=== PATIENT | female | born 1935 | race Caucasian/White ===

== ENCOUNTER → 2016-09-28 | Outpatient (CLI) | payer MEDICARE ==
[~2016-09-28] MED LIST: ALBU17AE23 IH; ASP81TEC PO; ASPI-999 PO; CARV12.53 PO; CETI10CA PO; CHOL2000 PO; CPR500T PO; FA/M1TAB29 PO; FLT22013 INH; GBPN300C PO; GLUC-116 PO; HCT25T PO; IBUP-15 PO; IPRA0.2S51 IH; IPRA30SP INH; LEVO750T39 PO; LOSA50TA6 PO; MAGN400T6 PO; METO-272 PO; METO50TA2 PO; MULT-349 PO; MULT1CAP27 PO; OMEP20TA2 PO; SERT25TA PO; SERT50TA9 PO; VLS80C PO
--- OUTSIDE RECORDS SUMMARY | 2016-09-28 10:23 | XMS REPORT | Continuity of Care Document ---
Author Author [facility] Organization [facility] Address Unknown Phone Unavailable Allergies Active Description Code Type Severity Reaction Onset Reported/Identified Relationship to Patient Clinical Status Yes loratadine [id number] Drug Allergy Unknown N/A 10/15/2014 Yes Penicillins [id number] Drug Allergy Unknown N/A 10/15/2014 Yes Sulfa (Sulfonamide Antibiotics) [id number] Drug Allergy Unknown N/A 10/15/2014 Medications Problems Date Dx Coded Attending Type Code Diagnosis Diagnosed By 06/04/2011 Ot 275.2 06/04/2011 Ot 356.9 06/04/2011 Ot 401.9 06/04/2011 Ot 426.11 06/04/2011 Ot 427.89 06/04/2011 Ot 458.9 06/04/2011 Ot 493.90 06/04/2011 Ot 530.81 06/04/2011 Ot 722.4 06/04/2011 Ot 780.2 06/04/2011 Ot 920 06/04/2011 Ot E000.8 06/04/2011 Ot E849.6 06/04/2011 Ot E888.1 06/04/2011 Ot V12.59 06/04/2011 Ot V58.66 06/04/2011 Ot V58.69 05/30/2013 FLAKITO JOHNSON, HILDA Gee Ot 599.0 05/30/2013 HILDA FRAGA MD Ot 788.41 07/23/2014 Ot V76.12 07/23/2014 Ot V76.12 07/23/2014 Ot V76.12 07/23/2014 Ot 793.80 07/23/2014 NALDO LUNA DO Ot 793.80 07/23/2014 NALDO LUNA DO Ot V67.9 07/23/2014 NALDO LUNA DO Ot 959.3 07/23/2014 NALDO LUNA DO Ot E000.8 07/23/2014 NALDO LUNA DO Ot E928.9 07/23/2014 LUNA DONALDO Ot V76.12 08/24/2014 LUNA DO, NALDO Corrigan Ot 786.50 08/24/2014 LUNA DO NALDO Corrigan Ot V76.12 11/12/2014 Ot 789.03 08/09/2015 Ot V76.12 08/09/2015 Ot V76.12 08/09/2015 Ot 793.80 08/09/2015 LUNA DO NALDO Corrigan Ot 793.80 08/09/2015 LUNA DO NALDO Corrigan Ot V67.9 08/09/2015 LUNA DO NALDO Corrigan Ot 959.3 08/09/2015 LUNA DO NALDO Corrigan Ot E000.8 08/09/2015 LUNA DO NALDO Corrigan Ot E928.9 08/09/2015 LUNA DO NALDO Corrigan Ot V76.12 08/09/2015 LUNA DO NALDO Corrigan Ot 786.50 08/09/2015 LUNA DO NALDO Corrigan Ot V76.12 08/09/2015 Ot 789.03 08/31/2015 LUNA DO NALDO Corrigan Ot Z12.31 10/14/2015 Ot V76.12 10/14/2015 Ot V76.12 10/14/2015 Ot 793.80 10/14/2015 LUNA DO NALDO Corirgan Ot 793.80 10/14/2015 LUNA DO NALDO Corrigan Ot V67.9 10/14/2015 LUNA DO NALDO Corrigan Ot 959.3 10/14/2015 LUNA DO NALDO Corrigan Ot E000.8 10/14/2015 LUNA DO NALDO Corrigan Ot E928.9 10/14/2015 LUNA DO NALDO Corrigan Ot V76.12 10/14/2015 LUNA DO NALDO Corrigan Ot 786.50 10/14/2015 LUNA DO NALDO Corrigan Ot V76.12 10/14/2015 Ot 789.03 10/14/2015 LUNA DO NALDO Corrigan Ot Z12.31 11/03/2015 LUNA DO NALDO Corrigan Ot E55.9 11/03/2015 LUNA DO NALDO Corrigan Ot M85.80 11/03/2015 LUNA DO NALDO Corrigan Ot R29.890 11/03/2015 NALDO LUNA DO Ot Z13.820 03/13/2016 KIANA JOHNSON, MIRIAN Garcia Ot A41.9 SEPSIS, UNSPECIFIED ORGANISM 03/13/2016 MIRIAN BRUNO MD Ot F32.9 MAJOR DEPRESSIVE DISORDER, SINGLE EPISOD 03/13/2016 MIRIAN BRUNO MD Ot I10 ESSENTIAL (PRIMARY) HYPERTENSION 03/13/2016 MIRIAN BRUNO MD Ot J18.9 PNEUMONIA, UNSPECIFIED ORGANISM 03/13/2016 MIRIAN BURNO MD Ot J44.9 CHRONIC OBSTRUCTIVE PULMONARY DISEASE, U 03/13/2016 MIRIAN BRUNO MD Ot Z86.79 PERSONAL HISTORY OF OTHER DISEASES OF TH 03/14/2016 MIRIAN BRUNO MD Ot F32.9 MAJOR DEPRESSIVE DISORDER, SINGLE EPISOD 03/14/2016 MIRIAN BRUNO MD Ot I10 ESSENTIAL (PRIMARY) HYPERTENSION 03/14/2016 MIRIAN BRUNO MD Ot J18.9 PNEUMONIA, UNSPECIFIED ORGANISM 03/14/2016 MIRIAN BRUNO MD Ot J44.1 CHRONIC OBSTRUCTIVE PULMONARY DISEASE W 03/14/2016 MIRIAN BRUNO MD Ot M19.90 UNSPECIFIED OSTEOARTHRITIS, UNSPECIFIED 03/14/2016 MIRIAN BRUNO MD Ot Z86.79 PERSONAL HISTORY OF OTHER DISEASES OF 04/04/2016 NALDO LUNA DO Ot J18.9 PNEUMONIA, UNSPECIFIED ORGANISM 04/04/2016 NALDO LUNA DO Ot J18.9 PNEUMONIA, UNSPECIFIED ORGANISM 04/21/2016 NALDO LUNA DO Ot J18.9 PNEUMONIA, UNSPECIFIED ORGANISM 05/09/2016 NALDO LUNA DO, Ot J18.9 PNEUMONIA, UNSPECIFIED ORGANISM Procedures Results Test Result Range Bacterial blood culture - 03/11/16 10:57 Bacterial blood culture NG NRG Bacterial blood culture - 03/11/16 11:17 Bacterial blood culture NG NRG Encounters ACCT No. Visit Date/Time Discharge Status Pt. Type Provider Facility Loc./Unit Complaint [id number] 03/12/2016 12:00:00 2015 11:30:00 DIS Inpatient MIRIAN BRUNO MD [facility] 4TH RML LLL PNEUMONIA [id number] 07/23/2014 12:55:00 2013 23:59:59 CLS Outpatient NALDO LUNA DO [facility] RAD [id number] 09/04/2013 15:44:00 2013 23:59:59 CLS Outpatient [id number] 08/07/2013 11:09:00 2012 23:59:59 CLS Outpatient NALDO LUNA DO [facility] RAD [id number] 06/30/2013 13:59:00 2012 23:59:59 CLS Outpatient [id number] 05/30/2013 06:48:00 2012 09:00:00 DIS Emergency FLAKITO JOHNSON, HILDA Gee [facility] ER [id number] 02/24/2013 13:41:00 2012 23:59:59 CLS Outpatient [id number] 01/20/2013 13:38:00 2012 23:59:59 CLS Outpatient NALDO LUNA DO [facility] RAD [id number] 12/31/2012 10:44:00 2012 23:59:59 CLS Outpatient NALDO LUNA DO [facility] RAD [id number] 09/28/2016 10:45:00 PEN Preadmit NALDO LUNA DO [facility] RAD SCREEN [id number] 03/31/2016 08:53:00 ACT Outpatient NALDO LUNA DO [facility] RAD J18.9 FOLLOW UP [id number] 10/14/2015 09:06:00 ACT Outpatient NALDO LUNA DO [facility] RAD [id number] 08/09/2015 15:11:00 ACT Outpatient NALDO LUNA DO [facility] RAD [id number] 10/12/2014 11:30:00 Document Registration [id number] 07/23/2014 12:56:00 Document Registration [id number] 08/27/2012 12:53:00 Document Registration [id number] 07/29/2012 10:01:00 Document Registration [id number] 06/22/2011 10:56:00 Document Registration [id number] 06/02/2011 14:40:00 Document Registration [id number] 05/27/2009 14:00:00 Document Registration
--- NOTE | 2016-09-28 19:02 | Diagnostic Imaging Report ---
Bilateral screening mammogram The current study was also evaluated with a Computer Aided Detection (CAD) system. Indication: Screening. No current complaints stated on the questionnaire. COMPARISON: 08/09/15. FINDINGS: The breasts are composed of scattered fibroglandular densities. There are occasional benign-appearing calcifications. Allowing for technique and positional differences, no suspicious change is seen. IMPRESSION: No significant change. ACR BI-RADS Category 2: Benign findings. Result letter will be mailed to the patient. Note: At least 10% of breast cancer is not imaged by mammography. Dictated by: Dictated on workstation # [id number]
== END ==
LOC: RAD 10:20
PROVIDERS: ATTEND Internal Medicine
DX: Z12.31 Encounter for screening mammogram for malignant neoplasm of breast (principal)
CPT/HCPCS: 77067

== ENCOUNTER → 2016-10-13 | Outpatient (CLI) | payer MEDICARE ==
--- OUTSIDE RECORDS SUMMARY | 2016-10-13 10:07 | XMS REPORT | Continuity of Care Document ---
Author Author [facility] Organization [facility] Address Unknown Phone Unavailable Allergies Active Description Code Type Severity Reaction Onset Reported/Identified Relationship to Patient Clinical Status Yes loratadine [id number] Drug Allergy Unknown N/A 10/15/2014 Yes Penicillins [id number] Drug Allergy Unknown N/A 10/15/2014 Yes Sulfa (Sulfonamide Antibiotics) [id number] Drug Allergy Unknown N/A 10/15/2014 Medications Problems Date Dx Coded Attending Type Code Diagnosis Diagnosed By 06/04/2011 Ot 275.2 DIS MAGNESIUM METABOLISM 06/04/2011 Ot 356.9 IDIO PERIPH NEURPTHY NOS 06/04/2011 Ot 401.9 HYPERTENSION NOS 06/04/2011 Ot 426.11 ATRIOVENT BLOCK-1ST DEGR 06/04/2011 Ot 427.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 NEC 06/04/2011 Ot 458.9 HYPOTENSION NOS 06/04/2011 Ot 493.90 ASTHMA, UNSPECIFIED 06/04/2011 Ot 530.81 ESOPHAGEAL REFLUX 06/04/2011 Ot 722.4 CERVICAL DISC DEGEN 06/04/2011 Ot 780.2 SYNCOPE AND COLLAPSE 06/04/2011 Ot 920 CONTUSION FACE/SCALP/NCK 06/04/2011 Ot E000.8 OTHER EXTERNAL CAUSE STATUS 06/04/2011 Ot E849.6 ACCIDENT IN PUBLIC BLDG 06/04/2011 Ot E888.1 FALL STRIKING OBJECT NEC 06/04/2011 Ot V12.59 HX-CIRCULATORY SYST DIS,NEC 06/04/2011 Ot V58.66 LONG-TERM (CURRENT) USE OF ASPIRIN 06/04/2011 Ot V58.69 OTH MED,LT,CURRENT USE 05/30/2013 FLAKITO JOHNSON, HILDA Gee Ot 599.0 URIN TRACT INFECTION NOS 05/30/2013 FLAKITO JOHNSON, HILDA Gee Ot 788.41 URINARY FREQUENCY 07/23/2014 Ot V76.12 07/23/2014 Ot V76.12 07/23/2014 Ot V76.12 07/23/2014 Ot 793.80 07/23/2014 LUNA DO NALDO Corrigan Ot 793.80 07/23/2014 LUNA DO NALDO Corrigan Ot V67.9 07/23/2014 LUNA DO NALDO Corrigan Ot 959.3 07/23/2014 LUNA DO NALDO Corrigan Ot E000.8 07/23/2014 LUNA DO NALDO Corrigan Ot E928.9 07/23/2014 LUNA DO NALDO Corrigan Ot V76.12 08/24/2014 LUNA DO NALDO Corrigan Ot 786.50 08/24/2014 LUNA DO NALDO Corrigan Ot V76.12 11/12/2014 Ot 789.03 08/09/2015 Ot V76.12 08/09/2015 Ot V76.12 08/09/2015 Ot 793.80 08/09/2015 LUNA DO NALDO oCrrigan Ot 793.80 08/09/2015 LUNA DO NALDO Corrigan Ot V67.9 08/09/2015 LUNA DO NALDO Corrigan Ot 959.3 08/09/2015 LUNA DO NALDO Corrigna Ot E000.8 08/09/2015 LUNA DO NALDO Corrigan Ot E928.9 08/09/2015 LUNA DO NALDO Corrigan Ot V76.12 08/09/2015 LUNA DO NALDO Corrigan Ot 786.50 08/09/2015 LUNA DO NALDO Corrigan Ot V76.12 08/09/2015 Ot 789.03 08/31/2015 LUNA DO NALDO Corrigan Ot Z12.31 10/14/2015 Ot V76.12 10/14/2015 Ot V76.12 10/14/2015 Ot 793.80 10/14/2015 LUNA DO NALDO Corrigan Ot 793.80 10/14/2015 LUNA DO NALDO Corrigan Ot V67.9 10/14/2015 LUNA DO NALDO Corrigan Ot 959.3 10/14/2015 LUNA DO NALDO Corrigan Ot E000.8 10/14/2015 LUNA DO NALDO Corrigan Ot E928.9 10/14/2015 LUNA DO NALDO Corrigan Ot V76.12 10/14/2015 LUNA DO NALDO Corrigan Ot 786.50 10/14/2015 LUNA DONALDO Ot V76.12 10/14/2015 Ot 789.03 10/14/2015 LUNANALDO RENTERIA DO Ot Z12.31 11/03/2015 LUNA DONALDO Ot E55.9 11/03/2015 LUNA NALDO GREEN Ot M85.80 11/03/2015 LUNA NALDO GREEN Ot R29.890 11/03/2015 LUNA NALDO GREEN Ot Z13.820 03/13/2016 MIRIAN BRUNO MD Ot A41.9 SEPSIS, UNSPECIFIED ORGANISM 03/13/2016 MIRIAN BRUNO MD Ot F32.9 MAJOR DEPRESSIVE DISORDER, SINGLE EPISOD 03/13/2016 MIRIAN BRUNO MD Ot I10 ESSENTIAL (PRIMARY) HYPERTENSION 03/13/2016 MIRIAN BRUNO MD, Ot J18.9 PNEUMONIA, UNSPECIFIED ORGANISM 03/13/2016 MIRIAN BRUNO MD Ot J44.9 CHRONIC OBSTRUCTIVE PULMONARY DISEASE, U 03/13/2016 MIRIAN BRUNO MD Ot Z86.79 PERSONAL HISTORY OF OTHER DISEASES OF 03/14/2016 MIRIAN BRUNO MD Ot F32.9 MAJOR [...] DO Ot J18.9 PNEUMONIA, UNSPECIFIED ORGANISM 05/09/2016 LUNA NALDO GREEN Ot J18.9 PNEUMONIA, UNSPECIFIED ORGANISM 09/28/2016 Ot V76.12 OTH SCREEN MAMMO-MALIGN NEOPLASM OF [place] 09/28/2016 Ot V76.12 OTH SCREEN MAMMO-MALIGN NEOPLASM OF [place] 09/28/2016 Ot 793.80 UNSPEC ABNORMAL MAMMOGRAM 09/28/2016 NALDO LUNA DO Ot 793.80 UNSPEC ABNORMAL MAMMOGRAM 09/28/2016 NALDO LUNA DO Ot V67.9 FOLLOW-UP EXAM NOS 09/28/2016 NALDO LUNA DO Ot 959.3 ELB/FOREARM/WRST INJ NOS 09/28/2016 NALDO LUNA DO Ot E000.8 OTHER EXTERNAL CAUSE STATUS 09/28/2016 NALDO LUNA DO Ot E928.9 ACCIDENT NOS 09/28/2016 NALDO LUNA DO, Ot V76.12 OTH SCREEN MAMMO-MALIGN NEOPLASM OF [place] 09/28/2016 NALDO LUNA DO Ot 786.50 CHEST PAIN NOS 09/28/2016 NALDO LUNA DO, Ot V76.12 OTH SCREEN MAMMO-MALIGN NEOPLASM OF [place] 09/28/2016 Ot 789.03 ABDOMINAL PAIN, RIGHT LOWER QUADRANT 09/28/2016 NALDO LUNA DO, Ot Z12.31 ENCNTR SCREEN MAMMOGRAM FOR MALIGNANT NE 09/28/2016 NALDO LUNA DO Ot E55.9 VITAMIN D DEFICIENCY, UNSPECIFIED 09/28/2016 NALDO LUNA DO Ot M85.80 OT DISRD OF BONE DENSITY AND STRUCTURE, 09/28/2016 NALDO LUNA DO Ot R29.890 LOSS OF HEIGHT 09/28/2016 NALDO LUNA DO Ot Z13.820 ENCOUNTER FOR SCREENING FOR OSTEOPOROSIS 09/28/2016 NALDO LUNA DO, Ot J18.9 PNEUMONIA, UNSPECIFIED ORGANISM 09/29/2016 NALDO LUNA DO, Ot Z12.31 ENCNTR SCREEN MAMMOGRAM FOR MALIGNANT NE Procedures Results Test Result Range Bacterial blood culture - 03/11/16 10:57 Bacterial blood culture NG NRG Bacterial blood culture - 03/11/16 11:17 Bacterial blood culture NG NRG Encounters ACCT No. Visit Date/Time Discharge Status Pt. Type Provider Facility Loc./Unit Complaint [id number] 03/12/2016 12:00:00 2015 11:30:00 DIS Inpatient KIANA JOHNSON, MIRIAN Garcia [facility] 4TH RML LLL PNEUMONIA [id number] 07/23/2014 12:55:00 2013 23:59:59 CLS Outpatient NALDO LUNA DO [facility] RAD SCREENING,CP [id number] 09/04/2013 15:44:00 2013 23:59:59 CLS Outpatient [id number] 08/07/2013 11:09:00 2012 23:59:59 CLS Outpatient NALDO LUNA DO [facility] RAD SCREENING [id number] 06/30/2013 13:59:00 2012 23:59:59 CLS Outpatient [id number] 05/30/2013 06:48:00 2012 09:00:00 DIS Emergency FLAKITO JOHNSON, HILDA Gee [facility] ER URINATING EVERY 15 MINUTES [id number] 02/24/2013 13:41:00 2012 23:59:59 CLS Outpatient [id number] 01/20/2013 13:38:00 2012 23:59:59 CLS Outpatient NALDO LUNA DO [facility] RAD TRAUMA [id number] 12/31/2012 10:44:00 2012 23:59:59 CLS Outpatient NALDO LUNA DO [facility] RAD THREE MONTH FOLLOW-UP,ABN MAMMOGRAM [id number] 09/28/2016 10:20:00 ACT Outpatient NALDO LUNA DO [facility] RAD SCREEN [id number] 03/31/2016 08:53:00 ACT Outpatient NALDO LUNA DO [facility] RAD J18.9 FOLLOW UP [id number] 10/14/2015 09:06:00 ACT Outpatient NALDO LUNA DO [facility] RAD VITAMIND D DEF [id number] 08/09/2015 15:11:00 ACT Outpatient NALDO LUNA DO [facility] RAD SCREENING [id number] 10/12/2014 11:30:00 Document Registration [id number] 07/23/2014 12:56:00 Document Registration [id number] 08/27/2012 12:53:00 Document Registration [id number] 07/29/2012 10:01:00 Document Registration [id number] 06/22/2011 10:56:00 Document Registration [id number] 06/02/2011 14:40:00 Document Registration [id number] 05/27/2009 14:00:00 Document Registration
--- NOTE | 2016-10-13 14:49 | Diagnostic Imaging Report ---
Cervical spine. INDICATION: Neck pain. FINDINGS: AP, lateral and odontoid views were obtained. The CT cervical spine exam of 06/02/2011 noted degenerative disc and bony disease at C5-C6 and C6-C7. Those findings are again evident and do not appear to have changed significantly. There may be slightly greater narrowing of the disc space at C5-C6 than on the prior exam. The other intervertebral disc spaces are essentially no different. There is no fracture or acute bony abnormality evident. There is no sign of retropharyngeal edema. The lung apices are clear. IMPRESSION: 1. There is no evidence for an acute bony abnormality. 2. The degenerative disc and bony disease at C5-C6 and C6-C7 seen on the prior study has not changed significantly. There may be slightly greater narrowing of the disc space at C5-C6, however. 3. If there is clinical concern regarding spinal stenosis or nerve root encroachment, then MRI will be recommended for further evaluation. Dictated by: Dictated on workstation # [id number]
== END ==
LOC: RAD 10:03
PROVIDERS: ATTEND Internal Medicine
DX: M54.2 Cervicalgia (principal); M50.322 Other cervical disc degeneration at C5-C6 level
CPT/HCPCS: 72040

== ENCOUNTER → 2017-05-31 | Outpatient (CLI) | payer MEDICARE ==
[~2017-05-31] MED LIST changes: +IOHEXOL 350 MG/ML 100 ML (OMNIPAQUE 350) VIAL IV ONE; +NS 100 ML (IVPB) BAG IV ONE
[2017-05-31 10:08] LABS: BLOOD UREA NITROGEN 16 MG/DL (7-18); BUN/CREATININE RATIO 21; CREATININE SERUM 0.77 MG/DL (0.60-1.30); GFR ESTIMATED > 60
--- NOTE | 2017-05-31 18:49 | Diagnostic Imaging Report ---
PROCEDURE: CT chest with contrast only. TECHNIQUE: Multiple contiguous axial images were obtained through the chest after administration of intravenous contrast. INDICATION: Hilar nodule. Cough. Shortness of breath. 75 mL of Omnipaque 350 is administered as intravenously. FINDINGS: In the left upper lobe, there is an area of consolidation seen with air bronchograms noted that has an elongated appearance particularly, prominent on the coronal images. This is involving a subsegmental area within the anterior segment of the left upper lobe. This could be related to atelectasis or scarring based on its morphology. There is also a nonspecific patchy ground-glass opacity seen in the anterolateral aspect of the right lower lobe near the lung base involving an area measuring around 2.3 x 1.1 cm. This could relate to a scar or focal atelectasis as well. There is a calcified granuloma in the right middle lobe. There is also a calcified granuloma in the infracarinal region. No significant lymphadenopathy in the mediastinum, noel, or in the axillae is noted. The heart size is normal. No pericardial or pleural effusion. Nonspecific thyroid nodules, less than a centimeter in size, in the right thyroid lobe are seen. There is a mild pectus excavatum deformity, more prominent in the lower chest. Mild degenerative changes in the thoracic spine seen. Sections in the upper abdomen demonstrate cholecystectomy clips. IMPRESSION: 1. Nonspecific elongated area of consolidation in the anterior segment of the left upper lobe. Based on its morphology, atelectasis or scarring is favored. Underlying neoplasm is not entirely excluded. A PET/CT evaluation or followup study in 2-3 months is recommended. 2. Nonspecific ground-glass opacity in the lateral aspect of the right lower lobe near the lung base could relate to scarring or focal atelectasis as well. Dictated by: Dictated on workstation # [id number]
== END ==
LOC: RAD 09:21
PROVIDERS: ATTEND Internal Medicine
DX: R91.8 Other nonspecific abnormal finding of lung field (principal)
CPT/HCPCS: 36415; 71260; 82565; 84520

== ENCOUNTER → 2017-06-12 | Outpatient (CLI) | payer MEDICARE ==
[~2017-06-12] MED LIST changes: -IOHEXOL 350 MG/ML 100 ML (OMNIPAQUE 350) VIAL IV ONE; -NS 100 ML (IVPB) BAG IV ONE
--- NOTE | 2017-06-13 10:51 | Diagnostic Imaging Report ---
EXAMINATION: PET-CT TECHNIQUE: Serum glucose level at the time of the study is: 97 mg/dL. 12.1 mCi of FDG was administered intravenously followed by obtaining PET images with corresponding noncontrast CT scan images. The CT scan was performed for anatomic correlation and attenuation correction and was not performed according to the diagnostic protocol of the areas covered. The scan was performed from the head to mid thighs. INDICATION: Pulmonary nodule. COMPARISON: Correlation with CT scan of 05/31/2017. FINDINGS: There is symmetric FDG uptake in the brain. There is no significantly hypermetabolic mass seen in the neck. There is minimal FDG uptake in the left upper lobe anterior segment focal consolidation with SUV of 2.5. This is in favor of a benign process such as pneumonitis rather than a neoplasm. No hypermetabolic enlarged lymph nodes in the noel or mediastinum. The abdomen and pelvis demonstrate physiologic excretion of the tracer in the urinary tract. No suspicious hypermetabolic mass is seen. IMPRESSION: There is minimal FDG uptake in the left upper lobe nodular consolidation in favor of benign process such as inflammatory or infectious pneumonitis. Followup CT chest in 2-3 months is recommended to ensure stability. Dictated by: Dictated on workstation # [id number]
== END ==
LOC: RAD 10:34
PROVIDERS: ATTEND Internal Medicine
DX: R91.8 Other nonspecific abnormal finding of lung field (principal)

== ENCOUNTER 2017-07-22 11:31 | Emergency (ER) | payer MEDICARE ==
[~2017-07-22] VITALS: Ht 154.9 cm; Wt 73.2 kg
[2017-07-22] MEDS ORDERED: TRAM-42 PO (12:32)
--- NOTE | 2017-07-22 12:33 | ED Lower Extremity ---
General Chief Complaint: Lower Extremity Stated Complaint: L KNEE INJ Nursing Triage Note: PT STATES HER LT KNEE HAS BEEN HURTING, 1 ALEVE THIS A.M. PT WENT TO GET UP AT [employer] AND WAS UNABLE TO BEAR WEIGHT ON IT. STATES DANCING ON 07/07 AND IT HAS BEEN HURTING SINCE OFF AND ON. Nursing Sepsis Screen: No Definite Risk Source: patient Exam Limitations: no limitations History of Present Illness Time seen by provider: 12:29 Initial Comments To ER with left knee pain. She was at [employer] today standing up out of her PO2 to go get communion. Her knee gave out causing her to almost fall but she was able to catch herself. She has pain in the left knee. She did receive a steroid injection the left knee from her primary care provider Dr. Rucker recently for some ongoing knee pain. Apically she takes Advil which does help with the chronic knee pain. She's been unable to bear weight since the fall due to the pain. Onset: just prior to arrival Severity: moderate Pain/Injury Location: left knee Method of Injury: other (knee gave out) Modifying Factors: Improves With Movement Allergies and Home Medications Allergies Coded Allergies: Penicillins (Verified Allergy, Unknown, 10/15/14) Sulfa (Sulfonamide Antibiotics) (Verified Allergy, Unknown, 10/15/14) loratadine (Verified Allergy, Unknown, 10/15/14) Home Medications Aspirin 81 Mg Tab.chew, 81 MG PO HS, (Reported) Cholecalciferol 2,000 Unit Capsule, 2,000 UNIT PO DAILY, (Reported) Gabapentin 300 Mg Cap, 300 MG PO HS, (Reported) Gluc/Juan-MSM#2/C/D3/Eduardo/Born 1 Each Tablet, 1 TAB PO DAILY, (Reported) Ibuprofen 200 Mg Tablet, 400 MG PO Q4H PRN for PAIN, (Reported) TAKES 2 (200MG) TABLETS Levofloxacin 750 Mg Tablet, 750 MG PO Q48H@11, #4 Prescribed by: REBECCA OBRIEN on 03/14/16 1019 Losartan Potassium 50 Mg Tablet, 50 MG PO DAILY, (Reported) Metoprolol Tartrate 50 Mg Tablet, 50 MG PO HS, (Reported) Metoprolol Tartrate 50 Mg Tablet, 25 MG PO DAILY, (Reported) TAKES 1/2 (50MG) TABLET Multivit-Min/FA/Lycopene/Lut 1 Each Tablet, 1 TAB PO DAILY, (Reported) Sertraline HCl 50 Mg Tablet, 25 MG PO HS, (Reported) TAKES 1/2 (50MG) TABLET Constitutional: see HPI EENTM: see HPI Respiratory: no symptoms reported Cardiovascular: no symptoms reported Genitourinary: no symptoms reported Musculoskeletal: see HPI Skin: no symptoms reported Psychiatric/Neurological: No Symptoms Reported Past Urzrodj-Kcwwxb-Mjcgpa Hx Patient Social History Recent Foreign Travel: No Contact w/Someone Who Travel: No Recent Infectious Disease Expo: No Recent Hopitalizations: No Immunizations Up To Date Date of Pneumonia Vaccine: Aug 20, 2012 Seasonal Allergies Seasonal Allergies: No Respiratory Respiratory Disorders: Pneumonia Currently Using CPAP: No Currently Using BIPAP: No Cardiovascular Cardiac Disorders: Hypertension Reproductive System Hx Reproductive Disorders: No Sexually Transmitted Disease: No HIV/AIDS: No Female Reproductive Disorders: Denies [employer] History: Hysterectomy Musculoskeletal Musculoskeletal Disorders: Arthritis HEENT HEENT Disorders: Cataract Psychosocial Behavioral Health Disorders: Depression Family Medical History Family Medial History: Arthritis G8 SISTER Cardiovascular disease 19 MOTHER FH: breast cancer in first degree relative G8 SISTER FH: cancer 19 FATHER Myocardial infarction 19 MOTHER Physical Exam Vital Signs Capillary Refill : Less Than 3 Seconds General Appearance: WD/WN, no apparent distress HEENT: PERRL/EOMI, normal ENT inspection Neck: non-tender, full range of motion Respiratory: no respiratory distress, no accessory muscle use Hips: bilateral hip non-tender, bilateral hip normal inspection, bilateral hip normal range of motion Legs: bilateral leg non-tender, bilateral leg normal inspection, bilateral leg normal range of motion Knees: left knee pain, left knee soft tissue tenderness, left knee other ( there is no swelling, ecchymosis or erythema.) Ankles: bilateral ankle non-tender, bilateral ankle normal inspection, bilateral ankle normal range of motion Feet: bilateral foot non-tender, bilateral foot normal inspection, bilateral foot normal range of motion Neurologic/Psychiatric: alert, normal mood/affect, oriented x 3 Skin: normal color, warm/dry Progress/Results/Core Measures Results/Orders My Orders Orders - LACY MAST APRN Knee, Left, 3 Views (07/22/17 12:28) Tramadol Tablet (Ultram Tablet) (07/22/17 12:30) Departure Impression Impression: Primary Impression: Internal derangement of left knee Disposition: 01 HOME, SELF-CARE Condition: Stable Departure-Patient Inst. Decision time for Depature: 12:31 Referrals: NALDO RUCKER DO (PCP/Family) Primary Care Physician Patient Instructions: Knee Sprain (DC) Add. Discharge Instructions: 1. Follow-up with one of the orthopedic surgeons listed to further evaluate the knee pain. 2. Wear the knee immobilizer for the next few days to help get some stability to the knee. When the pain subsides you may take the knee immobilizer off. All discharge instructions reviewed with patient and/or family. Voiced understanding. Scripts Tramadol HCl (Ultram) 50 Mg Tablet 50 MG PO TID, #14 TAB Prov: LACY MAST APRN 07/22/17 LACY MAST APRN Jul 22, 2017 12:33
--- NOTE | 2017-07-22 13:30 | Diagnostic Imaging Report ---
INDICATION: Difficulty walking, knee gave out. COMPARISON: None available. TECHNIQUE: 3 radiographs of the left knee dated 07/22/2017. FINDINGS: No acute fracture or dislocation. No destructive osseous process. Severe medial joint space narrowing. Minimal tricompartmental osteophytosis. No joint effusion. No suspicious radiopaque foreign body. IMPRESSION: No acute osseous abnormality with advanced degenerative changes within the medial compartment. Dictated by: Dictated on workstation # [id number]
[2017-07-22] MEDS ORDERED: cloNIDine 0.1 MG (CATAPRES) TAB PO ONE (13:45)
[2017-07-22 13:50] VITALS: BP 190/72
== END 2017-07-22 13:50 | disposition home or self-care (01) ==
LOC: EDUNIT# 11:31 → ER 11:33
DX: M23.92 Unspecified internal derangement of left knee (principal); I10 Essential (primary) hypertension; M19.90 Unspecified osteoarthritis, unspecified site; F32.9 Major depressive disorder, single episode, unspecified; Z80.3 Family history of malignant neoplasm of breast; Z82.49 Family history of ischemic heart disease and other diseases of the circulatory system; Z90.710 Acquired absence of both cervix and uterus; Z79.82 Long term (current) use of aspirin; Z87.01 Personal history of pneumonia (recurrent); W18.30XA Fall on same level, unspecified, initial encounter
CPT/HCPCS: 73562; 99283

== ENCOUNTER → 2017-10-29 | Outpatient (CLI) | payer MEDICARE ==
[~2017-10-29] MED LIST changes: +METO50TA15 PO; -METO50TA2 PO; +TRAM-42 PO
--- NOTE | 2017-10-30 14:18 | Diagnostic Imaging Report ---
EXAMINATION: Digital mammogram bilateral screening with CAD. INDICATION: Screening. COMPARISON: 09/28/2016, 08/09/2015, and 07/23/2014. PERSONAL HISTORY: At this time, there are no current complaints. FINDINGS: There are scattered fibroglandular densities in both breasts which could obscure a lesion. Overall, there does not appear to have been any significant change when compared to the prior exam. No primary or secondary sign of malignancy is noted. IMPRESSION: There is no radiographic evidence for malignancy. ACR BI-RADS Category 1: Negative. Result letter will be mailed to the patient. Note: At least 10% of breast cancer is not imaged by mammography. Dictated by: Dictated on workstation # [id number]
== END ==
LOC: RAD 09:47
PROVIDERS: ATTEND Internal Medicine
DX: Z12.31 Encounter for screening mammogram for malignant neoplasm of breast (principal)
CPT/HCPCS: 77067

== ENCOUNTER → 2017-11-02 | Outpatient (CLI) | payer MEDICARE ==
[~2017-11-02] VITALS: Ht 149.9 cm; Wt 73.5 kg
[~2017-11-02] MED LIST changes: +REGADENOSON 0.4 MG/5 ML SYR (LEXISCAN) IV ONE
[2017-11-02] MEDS: CATHETER FLUSH 10 ML SYR IV PRN ×2 (07:00→08:13)
[2017-11-02 07:56] VITALS: BP 203/81
--- NOTE | 2017-11-05 11:05 | STRESS TEST ---
DATE OF SERVICE: 11/02/2017 NUCLEAR MYOVIEW REPORT REFERRING PHYSICIAN: Rico Rucker DO. In summary, the patient was injected with 10.3 mCi of technetium-99 Myoview and the resting images were obtained. Then, the patient received a stress dose of 32.1 mCi of technetium-99 Myoview. Test was supervised by Dr. Rucker. Review of the SPECT images showed no significant ischemia or infarction. SSS is 2, SDS 2, TID value 1.01. On the gated images, the left ventricle appeared to be in normal size with normal contractility. Calculated ejection fraction 78%. CONCLUSION: 1. No ischemia or infarction on SPECT images. 2. Normal left ventricular size with normal contractility. Calculated ejection fraction 78%. Job ID: [id number] DocumentID: [id number] Dictated Date: 11/05/2017 09:00:56 Spear Fisher Date: 11/05/2017 11:04:57 Dictated By: DOMINIQUE LEOS MD
== END ==
LOC: CARD 06:35
PROVIDERS: ATTEND Internal Medicine
DX: I10 Essential (primary) hypertension (principal); R09.02 Hypoxemia
CPT/HCPCS: 78452; 93017

== ENCOUNTER → 2019-01-14 | Outpatient (CLI) | payer MEDICARE ==
[~2019-01-14] MED LIST changes: -REGADENOSON 0.4 MG/5 ML SYR (LEXISCAN) IV ONE
--- NOTE | 2019-01-14 13:19 | Diagnostic Imaging Report ---
INDICATION: Routine screening. COMPARISON: 10/29/2017 and 09/28/2016. TECHNIQUE: 2D and 3D bilateral screening mammography was performed with CAD. FINDINGS Scattered fibroglandular densities are identified bilaterally. The parenchymal pattern appears stable. No mass or malignant appearing microcalcifications are seen. The axillae are unremarkable. IMPRESSION: No mammographic features suspicious for malignancy are identified. ACR BI-RADS Category 1: Negative. Result letter will be mailed to the patient. Note: At least 10% of breast cancer is not imaged by mammography. Dictated by: Dictated on workstation # [id number]
== END ==
LOC: RAD 09:52
PROVIDERS: ATTEND Internal Medicine
DX: Z12.31 Encounter for screening mammogram for malignant neoplasm of breast (principal); A93.8 Other specified arthropod-borne viral fevers; M15.9 Polyosteoarthritis, unspecified; G47.34 Idiopathic sleep related nonobstructive alveolar hypoventilation
CPT/HCPCS: 77067

== ENCOUNTER → 2021-01-24 | Outpatient (CLI) | payer MEDICARE ==
[~2021-01-24] MED LIST changes: +REGADENOSON 0.4 MG/5 ML SYR (LEXISCAN) IV ONE; +SERT-413 PO; -SERT50TA9 PO
[2021-01-24] MEDS: CATHETER FLUSH 10 ML SYR IV PRN ×2 (07:16→08:12)
[2021-01-24 08:10] VITALS: BP 150/92
--- NOTE | 2021-01-24 09:24 | Diagnostic Imaging Report ---
Indication: Fatigue Findings: The heart size is within normal limits and stable compared to the CT chest exam 05/31/2017. That study did note a nonspecific elongate area of consolidation in the anterior segment of the left upper lobe. The subsequent PET/CT exam of 06/12/2017 showed minimal FDG uptake in this region and this finding was felt to be benign. On this exam that area of abnormal density is again evident and no different. The lungs are otherwise generally clear. There is no sign of failure, pneumonia or pleural effusion to suggest an acute abnormality. The mediastinum is not widened. Osseous structures are intact. Impression: 1. There is no evidence for active disease. 2. The abnormal density in left perihilar region seen previously is again evident and does not appear to have changed significantly. The stability of this finding over a nearly 4 year period would suggest it is not related to an aggressive neoplastic process. Dictated by: Dictated on workstation # [id number]
--- NOTE | 2021-01-24 11:17 | Cardiology Stress Test Report ---
Stress Test Report Date of Procedure/Referring: Date of Procedure: Jan 24, 2021 PCP Naldo Rucker DO Admitting Physician Naldo Rucker DO Indications: Fatigue Baseline Vital Signs Vital Signs Date Time Temp Pulse Resp B/P (MAP) Pulse Ox O2 Delivery O2 Flow Rate FiO2 01/24/21 08:10 64 150/92 (111) 97 Room Air Summary: Patient receive a resting and stress dose of Myoview, images were acquired and reviewed in the short axis view, horizontal long axis view and vertical long axis view. TID: 1.08 SSS: 6 SDS: 6 EF: 63 1. Mild reversible ischemia involving the apex and inferoapical segments 2. Normal left ventricular size, EF 63% Copy Copies To 1: NALDO RUCKER BASHAR J MD Jan 24, 2021 11:17
== END ==
LOC: CARD 07:00
PROVIDERS: ATTEND Internal Medicine
DX: A93.8 Other specified arthropod-borne viral fevers (principal); K21.9 Gastro-esophageal reflux disease without esophagitis; I10 Essential (primary) hypertension
CPT/HCPCS: 71046; 78452; 93017; A9502